=== PATIENT | female | born 1990 | race Caucasian/White ===

== ENCOUNTER 2018-08-01 17:39 | Observation (INO) | payer OTHER ==
[~2018-08-01 17:39] MED LIST: IV FLUID CONTINUATION 600 ML IV ONE; SODIUM CHLORIDE 0.9% 100 ML with ceFAZolin 2,000 MG IV ONE
--- NOTE | 2018-08-01 18:55 | ED ---
Female Urogenital HPI - General Chief complaint: Vaginal Bleeding Stated complaint: Abd pain Time Seen by Provider: 08/01/18 18:12 Source: patient Mode of arrival: wheelchair Limitations: no limitations - History of Present Illness Initial comments: 28-year-old female patient presents to the emergency department today as a transfer from [facility] for further evaluation of abdominal pain and positive test. Patient states that she started having lower abdominal cramping suddenly approximately 1:30 this afternoon. Since the pain is intense and she proceeded to the emergency department for further evaluation. Patient states that she did have a positive test and after the pelvic exam started to have some vaginal bleeding. Patient did have a nexplanon control implant placed about 3 years ago. Patient is . [facility] does not have ultrasound therefore she was sent here for further evaluation. Patient states she is still having pain to the lower abdomen. Denies any radiation of the pain to her back. States she is still having some spotting. She denies any fevers or chills. Denies any hematuria, dysuria, urinary frequency, urinary urgency. Patient denies any recent rash, shortness breath, chest pain, nausea, vomiting, diarrhea, constipation, numbness , tingling, dizziness, weakness, headache, visual changes, or any other complaints. - Related Data Home Medications Medication Instructions Recorded Confirmed No Known Home Medications 08/01/18 08/01/18 Allergies Allergy/AdvReac Type Severity Reaction Status Date / Time No Known Allergies Allergy Verified 08/01/18 18:39 Review of Systems ROS Statement: Those systems with pertinent positive or pertinent negative responses have been documented in the HPI. ROS Other: All systems not noted in ROS Statement are negative. Past Medical History Past Medical History: No Reported History History of Any Multi-Drug Resistant Organisms: None Reported Past Surgical History: No Surgical Hx Reported Past Psychological History: No Psychological Hx Reported Smoking Status: Current every day smoker Past Alcohol Use History: None Reported Past Drug Use History: None Reported General Exam Limitations: no limitations General appearance: alert, in no apparent distress, other (Physical well- developed, well-nourished adult female patient in no acute distress. Vital signs upon presentation are temperature 99.3F, pulse 87, respirations 16, blood pressure 114/75, pulse ox 98% on room air.) Eye exam: Present: normal appearance, PERRL, EOMI. Absent: scleral icterus, conjunctival injection, periorbital swelling ENT exam: Present: normal exam, normal oropharynx, mucous membranes moist Respiratory exam: Present: normal lung sounds bilaterally. Absent: respiratory distress, wheezes, rales, rhonchi, stridor Cardiovascular Exam: Present: regular rate, normal rhythm, normal heart sounds. Absent: systolic murmur, diastolic murmur, rubs, gallop, clicks GI/Abdominal exam: Present: soft, tenderness (Right lower quadrant tenderness), normal bowel sounds. Absent: distended, guarding, rebound, rigid Neurological exam: Present: alert, oriented X3, CN II-XII intact Psychiatric exam: Present: normal affect, normal mood Skin exam: Present: warm, dry, intact, normal color. Absent: rash Course Vital Signs 08/01/18 08/01/18 08/01/18 18:07 19:10 20:10 Temperature 99.3 F Pulse Rate 87 81 88 Respiratory 16 18 18 Rate Blood Pressure 114/75 120/80 130/77 O2 Sat by Pulse 98 98 98 Oximetry Medical Decision Making - Medical Decision Making 28-year-old female patient is transferred from [facility] for abdominal cramping and positive test with presence of adnexal non- implant to the left arm. Concern is for ectopic . Labs reviewed and are relatively unremarkable. Hemoglobin 13.6. She did not have a quantitative hCG so we did add this, as well as 6000 at this time. Patient did have ultrasound which showed evidence for ectopic in the right adnexal region with presence of hemorrhage. My attending Dr. Hawk, did discuss the case with occupational nurse OBGYN Dr. Villalobos who will take patient to OR tonight. Patient will be given pain medication and IV fluids. - Lab Data Lab Results 08/01/18 Range/Units 18:58 HCG, Quant 6337.0 mIU/mL - Radiology Data Radiology results: report reviewed, image reviewed Ultrasound of the pelvis was obtained. Report was reviewed in its entirety. Impression by Dr. Keller just complex right adnexal cyst which appears to have yolk sac and pole with cardiac activity measuring 113 bpm. Findings could be compatible with an ectopic . Moderate to large amount of fluid with echogenic material within the pelvis can be hemorrhage. Disposition Clinical Impression: Ectopic Disposition: ADMITTED IP TO THIS [facility] Condition: Serious Referrals: Catrachito Muñiz MD [Primary Care Provider] - 1-2 days Decision to Admit Reason: Admit from EC Decision Date: 08/01/18 Decision Time: 21:29
--- NOTE | 2018-08-01 20:59 | US ---
EXAMINATION TYPE: Transabdominal DATE OF EXAM: 08/01/2018 8:28 PM COMPARISON: NONE CLINICAL HISTORY: Pain. Patient just found out she was today, has Nexplanon control in arm. Pain and bleeding EXAM PERFORMED: Transvaginal (TV) and Transabdominal (TA) EXAM MEASUREMENTS: GESTATIONAL AGE / DATING Physician Established: Not yet established Dates by LMP: LMP unknown Dates by First Scan: No previous this is first scan Dates by Current Scan for: ( 6 weeks/1 days)- Probable live right adnexal ectopic EDC: 03/26/2019 MATERNAL ANATOMY Uterus: 6.2 x 3.6 x 4.2 cm Right Ovary: Not visualized Left Ovary: 2.3 x 1.9 x 2.3 cm Post CDS / Adnexa: Severe amount of free fluid with debris visualized in bilateral adnexa and cul de sac Presence of free fluid: Yes GESTATION / SURVEY CRL: 0.4 cm (6 weeks/1 days) Yolk Sac (normal less than 6mm): 2 mm Heart Rate: 113 bpm IUP: Probable viable right adnexal ectopic Date of LMP: Unknown Beta HcG (if available): 6,337 Large complex area visualized within the right adnexa measuring 6.7 x 6.8 x 5.5 cm. Within this area appears to be a gestational sac with a pole with a yolk sac measuring 0.2 cm and a heart rate o f 113BPM. Large amount of complex free fluid visualized in bilateral adnexa and cul de sac. Small cys tic areas visualized within the endometrium. pole measurement places the gestational age of 6 weeks 1 day. IMPRESSION: 1. Complex right adnexal cyst which appears to have a yolk sac and pole with cardiac activity m easures 113 bpm. Findings can be compatible with an ectopic . 2. Moderate to large amount of fluid with echogenic material within the pelvis can be hemorrhage. 3. Report was called to Dr. Abdi by Dr. Bishop by telephone 6 hours 08/01/2018.
[2018-08-01] MEDS ORDERED: MORPHINE SULFATE 4 MG/ML SYRINGE IVP STA (21:25)
[2018-08-01] MEDS ORDERED: ONDANSETRON 4 MG/2 ML VIAL IVP STA (21:25)
[2018-08-01] MEDS ORDERED: SODIUM CHLORIDE 0.9% 1,000 ML IV ONE (21:27)
--- NOTE | 2018-08-01 22:13 | P.HPOB ---
History of Present Illness H&P Date: 08/01/18 Chief Complaint: abdominal pain this is a 28-year-old 3 para 2001 woman who presents with sudden onset of severe abdominal pain. She had a positive test at [facility] and was transferred to [facility] with suspicion for ectopic . Ultrasound imaging confirms a 6.7 cm right adnexal mass with a pole and heart rate of 113 bpm. beta hCG greater than 6000. There is a large amount of complex fluid consistent with blood in the bilateral adnexa. she is complaining of severe bilateral lower abdominal pain. She is having some irregular vaginal bleeding the last several weeks. Hemoglobin at [facility] is 13.2. The patient is unsure of last menstrual period. She has a nexplanon device which she has been using for contraception however believes it is . she has a history of 2 previous normal spontaneous vaginal deliveries. Review of Systems Constitutional: Denies chills, Denies fever Cardiovascular: Denies chest pain Respiratory: Denies cough Gastrointestinal: Reports abdominal pain Genitourinary: Reports abnormal vaginal bleeding, Reports Menstruation: Reports as per HPI Neurological: Denies headaches Past Medical History Past Medical History: No Reported History History of Any Multi-Drug Resistant Organisms: None Reported Past Surgical History: No Surgical Hx Reported Past Psychological History: No Psychological Hx Reported Smoking Status: Current every day smoker Past Alcohol Use History: None Reported Past Drug Use History: None Reported Medications and Allergies Home Medications Medication Instructions Recorded Confirmed Type No Known Home Medications 08/01/18 08/01/18 History Allergies Allergy/AdvReac Type Severity Reaction Status Date / Time No Known Allergies Allergy Verified 08/01/18 18:39 Exam Vital Signs Temp Pulse Resp BP Pulse Ox 08/01/18 21:41 97 F L 87 16 128/86 99 08/01/18 20:10 88 18 130/77 98 08/01/18 19:10 81 18 120/80 98 08/01/18 18:07 99.3 F 87 16 114/75 98 Intake and Output 08/01/18 08/01/18 08/01/18 06:59 14:59 22:59 Other: Weight 90.718 kg this is an uncomfortable-appearing female. Targeted physical exam is performed. breathing is unlabored. Heart is a regular rate and rhythm.The abdomen is soft and moderately tender with guarding but no rebound. There are no surgical scars. Pelvic examination is deferred secondary to recent transvaginal ultrasound. neurologically she is grossly intact Results US - abdomen: report reviewed, image reviewed (imaging consistent with a large right ectopic with pole and heart rate) Assessment and Plan (1) Ectopic Current Visit: Yes Status: Acute Code(s): O00.90 - UNSPECIFIED ECTOPIC WITHOUT INTRAUTERINE SNOMED Code(s): 03046371 Plan: this is a 28-year-old 3 para 2002 woman with severe abdominal pain, beta hCG greater than 6000 and findings of large right ectopic measuring greater than 6 cm with pole and heart rate. Significant free fluid in the pelvis. She is currently hemodynamically stable currently. I have recommended immediate operative treatment of ectopic . Due to large size of the ectopic mass and hemoperitoneum she will undergo exploratory laparotomy with right salpingectomy possible right salpingo-oophorectomy and any indicated surgery based on intraoperative findings. I reviewed the risks of this procedure with the patient and her partner. Risks include but are not limited to bleeding, transfusion, infection, damage to bowel, bladder, ureters and/or other pelvic or abdominal structures. Patient understands these risks and consent is obtained. The operating room team and anesthesiologist have been notified and we will proceed to the operating room.
[2018-08-01] MEDS ORDERED: HYDROmorphone (PF) 1 MG/ML ONE (22:20)
[2018-08-01] MEDS ORDERED: NEOSTIGMINE 1 MG/ML 10 ML VIAL ONE (22:20)
[2018-08-01] MEDS ORDERED: KETOROLAC 30 MG/ML 1 ML VIAL ONE (22:20)
[2018-08-01] MEDS ORDERED: GLYCOPYRROLATE 0.2 MG/ML 2 ML VIAL ONE (22:20)
[2018-08-01] MEDS ORDERED: fentaNYL (PF) 50 MCG/ML 2 ML AMP ONE (22:20)
[2018-08-01] MEDS ORDERED: ROCURONIUM BROMIDE 10 MG/ML 10 ML VIAL IV ONE (22:20)
[2018-08-01] MEDS ORDERED: LIDOCAINE 1% INJ 10MG/ML (20 ML MDV) ONE (22:20)
[2018-08-01] MEDS ORDERED: SUCCINYLCHOLINE CHLORIDE 100 MG/5 ML SYR IV ONE (22:20)
[2018-08-01] MEDS ORDERED: MIDAZOLAM 2 MG/2 ML VIAL ONE (22:20)
[2018-08-01] MEDS ORDERED: PROPOFOL 10 MG/ML 20 ML VIAL IV ONE (22:20)
[2018-08-01] MEDS ORDERED: ONDANSETRON 4 MG/2 ML VIAL ONE (22:20)
[2018-08-01] MEDS ORDERED: LACTATED RINGERS 1,000 ML IV ONE ×2 (23:10)
--- NOTE | 2018-08-01 23:32 | P.OP ---
Date of Procedure: 08/01/18 Preoperative Diagnosis: Ruptured ectopic Postoperative Diagnosis: Same Procedure(s) Performed: Exploratory laparotomy with right self inject to me and evacuation of hemoperitoneum Anesthesia: [employer] Customer Service Specialist #1: Ann Villalobos Insurance Customer Service Specialist #2: Navneet Queen Estimated Blood Loss (ml): 150 IV fluids (ml): 1,000 Urine output (ml): 50 Pathology: other (Right fallopian tube and ectopic ) Condition: stable Disposition: PACU Operative Findings: Approximately 400 mL lens of hemoperitoneum and clot in the pelvis. Enlarged right fallopian tube with active bleeding from the fimbriated end consistent with ectopic . Normal right ovary, normal left fallopian tube and ovary, normal uterus. Description of Procedure: The patient was taken from the emergency room to the operating room where general anesthetic was administered without incident. She was in positioned, prepped and draped in the dorsal supine position with a Mcqueen catheter in place. She received preoperative antibiotics. A low transverse skin incision was made and carried down to the underlying fascia sharply. The fascia was incised in the midline and extended bilaterally with Do scissors. The inferior and superior aspects of the fascial incision were elevated and the underlying rectus muscles dissected off sharply. She did have diastases of the rectus muscles. The peritoneum was identified, tented up and entered sharply. The peritoneum was immediately encountered and was suctioned out. The peritoneal incision was extended inferiorly and superiorly with excellent visualization the bladder. The self-retaining ring retractor was placed. The bowel was packed out of the pelvis. The above findings were noted. The right fallopian tube and ectopic mass were grasped with a Brock clamp. Cody clamp was placed across the mesosalpinx 2. The fallopian tube was amputated and handed off as surgical specimen. 2-0 Vicryl suture was utilized to doubly suture ligate the pedicle. Additional [id number] suture 2 was placed at the cornual end of the the pedicle. Slight oozing was noted in this area after copious irrigation of the pelvis. FloSeal therefore was applied as this was right at the cornua and I did not want to put anymore suture material in the area. Hemostasis was then noted. The rest the pelvis was inspected, no further bleeding or abnormality's were appreciated. Packing was removed from the abdomen. Retractors removed from the abdomen. Peritoneum was closed in a running fashion with 2-0 Vicryl suture. Bovie electrocautery was utilized on the rectus muscles to obtain hemostasis which was then noted. Fascia was then closed with 0 Vicryl suture in halves. The subcuticular tissue was irrigated and hemostasis was noted. Subcu was reapproximated with 2-0 Vicryl suture. Skin was closed in a subcutaneous fashion with 0 Vicryl suture. All counts reported to me as correct by the operating room staff. The patient was awoken from anesthetic and transported recovery area in stable condition.
[2018-08-01] MEDS ORDERED: NALOXONE 0.4 MG/ML 1 ML VIAL IV PRN (23:38)
[2018-08-01 23:40] LABS: Basophils % (A) 0 %; Eosinophils # (A) 0.1 k/uL (0-0.7); Eosinophils % (A) 1 %; HCT 32.7 % (34.0-46.0); Lymphocytes # (A) 4.5 k/uL (1.0-4.8); Lymphocytes % (A) 39 %; MCH 30.4 pg (25.0-35.0); MCHC 33.6 g/dL (31.0-37.0); MCV 90.6 fL (80.0-100.0); Monocytes # (A) 0.7 k/uL (0-1.0); Monocytes % (A) 6 %; Neutrophils # (A) 6.2 k/uL (1.3-7.7); Neutrophils % (A) 53 %; Platelet Count 251 k/uL (150-450); RDW 13.2 % (11.5-15.5); WBC 11.7 k/uL (3.8-10.6)
[2018-08-01] MEDS: MEPERIDINE 50 MG/ML SYRINGE IVP ONE ×2 (23:46→23:50)
[2018-08-02] MEDS ORDERED: SIMETHICONE 80 MG CHEWABLE PO PRN (00:33)
[2018-08-02] MEDS ORDERED: LACTATED RINGERS 1,000 ML IV SCH (00:33)
[2018-08-02] MEDS ORDERED: IBUPROFEN 600 MG TAB PO PRN (00:33)
[2018-08-02] MEDS ORDERED: ONDANSETRON 4 MG/2 ML VIAL IVP PRN (00:33)
[2018-08-02] MEDS ORDERED: diphenhydrAMINE 50 MG/ML 1 ML VIAL IVP PRN (00:33)
[2018-08-02] MEDS ORDERED: NALOXONE 0.4 MG/ML 1 ML VIAL IV PRN (00:33)
[2018-08-02] MEDS ORDERED: METOCLOPRAMIDE 5 MG/ML 2 ML VIAL IVP PRN (00:33)
[2018-08-02] MEDS ORDERED: ACETAMINOPHEN IV (For NPO) 1,000 MG in EMPTY BAG 1 BAG IVPB ONE (00:33)
[2018-08-02 01:06] VITALS: BMI 27.4
[2018-08-02] MEDS ORDERED: ceFAZolin IN SWFI 2 GM/20 ML SYRINGE IVP ONE (02:00)
[2018-08-02] MEDS: KETOROLAC 30 MG/ML 1 ML VIAL IVP PRN ×4 (04:31→21:58)
[2018-08-02] MEDS: Acetaminophen-Codeine 300-30mg TAB PO PRN ×3 (07:11→18:45)
[2018-08-02 08:51] LABS: Basophils % (A) 0 %; Eosinophils % (A) 0 %; HCT 32.3 % (34.0-46.0); HGB 10.9 gm/dL (11.4-16.0); Lymphocytes % (A) 21 %; MCH 30.6 pg (25.0-35.0); MCHC 33.8 g/dL (31.0-37.0); MCV 90.6 fL (80.0-100.0); Mean Platelet Volume 6.7; Monocytes # (A) 0.6 k/uL (0-1.0); Monocytes % (A) 6 %; Neutrophils # (A) 7.2 k/uL (1.3-7.7); Neutrophils % (A) 72 %; Platelet Count 246 k/uL (150-450); RBC 3.57 m/uL (3.80-5.40); RDW 13.3 % (11.5-15.5)
[2018-08-02] MEDS: SENNOSIDES-DOCUSATE SODIUM 1 EACH TAB PO SCH ×2 (09:23→20:53)
--- NOTE | 2018-08-02 09:59 | P.PN ---
Subjective Progress Note Date: 08/02/18 Principal diagnosis: Ectopic She is complaining of pain this morning. Has been able to on ambulate without difficulty. No spontaneous void yet with catheter out. Objective - Vital Signs Vital signs: Vital Signs Temp 98.1 F 08/02/18 07:50 Pulse 72 08/02/18 07:50 Resp 12 08/02/18 07:50 BP 126/82 08/02/18 07:50 Pulse Ox 97 08/02/18 07:50 Intake & Output 08/01/18 08/02/18 08/02/18 18:59 06:59 18:59 Intake Total 700 400 Output Total 450 Balance 700 -50 Weight 90.718 kg Intake: IV 700 400 Output: Urine 300 Estimated Blood Loss 150 Other: Voiding Method Indwelling Catheter Toilet - Constitutional General appearance: Present: disheveled, no acute distress - Gastrointestinal Gastrointestinal Comment(s): Incision dressed, dry. General gastrointestinal: Present: normal bowel sounds, soft, tenderness. Absent: distended Localized gastrointestinal: tender: diffuse - Labs CBC & Chem 7: 08/02/18 08:31 Labs: Abnormal Lab Results - Last 24 Hours (Table) 08/01/18 08/02/18 Range/Units 23:27 08:31 WBC 11.7 H (3.8-10.6) k/uL RBC 3.60 L 3.57 L (3.80-5.40) m/uL Hgb 11.0 L 10.9 L (11.4-16.0) gm/dL Hct 32.7 L 32.3 L (34.0-46.0) % Assessment and Plan (1) Ectopic Narrative/Plan: Status post exploratory laparotomy with right salpingectomy. Large hemoperitoneum was noted. Operative findings were reviewed with the patient and her partner. Advance diet slowly. Current Visit: Yes Status: Acute Code(s): O00.90 - UNSPECIFIED ECTOPIC WITHOUT INTRAUTERINE SNOMED Code(s): 26554490
[2018-08-02] MEDS: LACTATED RINGERS 1,000 ML IV SCH (11:52)
[2018-08-02] MEDS ORDERED: ACETAMINOPHEN TAB 325 MG TAB PO PRN (23:35)
[2018-08-03] MEDS: Acetaminophen-Codeine 300-30mg TAB PO PRN ×2 (01:20→08:28)
[2018-08-03] MEDS: LACTATED RINGERS 1,000 ML IV SCH (06:18)
--- NOTE | 2018-08-03 07:36 | P.DS ---
Providers Date of admission: 08/01/18 22:14 Expected date of discharge: 08/03/18 Attending physician: Ann Villalobos Primary care physician: Catrachito Muñiz - Discharge Diagnosis(es) (1) Ectopic Current Visit: Yes Status: Acute Hospital Course: This is a 28-year-old 3 para 2 woman who presented with large right ectopic and hemoperitoneum from an outlying facility. HCG was greater than 6000. She went to the operating room where she underwent an exploratory laparotomy with right salpingectomy and evacuation of hemoperitoneum. Her EBL was approximately 150 mL is with 400 mL's of hemoperitoneum. Her postoperative course was unremarkable. By postoperative day #1 she was ambulating and voiding spontaneously without difficulty. Her pain was well controlled and her diet was advanced slowly to a general diet. Her postoperative hemoglobin was 11.5 down from preop of 13. She is therefore discharged home with routine instructions for postoperative care and follow-up. Of note her blood type is O+. She will return to the office for postoperative follow-up and discussion of contraceptive options as she has an nexplanon Procedures: Exploratory laparotomy with right salpingectomy and evacuation of hemoperitoneum Patient Condition at Discharge: Good Plan - Discharge Summary Discharge Rx Participant: Yes New Discharge Prescriptions: New Acetaminophen-Codeine 300-30mg [Tylenol w/codeine #3] 2 each PO Q6HR PRN #20 tab PRN Reason: Severe Pain Discharge Medication List Acetaminophen-Codeine 300-30mg [Tylenol w/codeine #3] 2 each PO Q6HR PRN #20 tab 08/03/18 [Rx] Follow up Appointment(s)/Referral(s): Ann Villalobos MD [STAFF PHYSICIAN] - 2 Weeks Activity/Diet/Wound Care/Special Instructions: Follow-up in the office 2 weeks postoperatively or sooner with any concerning signs or symptoms. Call the office with any redness or drainage from the incision, foul vaginal discharge or heavy vaginal bleeding, severe abdominal pain, redness or swelling of the lower extremities or fever greater than 100.5 . No intercourse, nothing in the vagina until seen in follow-up.
[2018-08-03] MEDS: SENNOSIDES-DOCUSATE SODIUM 1 EACH TAB PO SCH (07:41)
[2018-08-03 08:11] VITALS: BP 94/58; PULSE 84; RESP 18; TEMP 97.7
== END 2018-08-03 09:31 ==
LOC: EC 17:39 → 6PED 22:14
PROVIDERS: ADMIT Obstetrics & Gynecology; ATTEND Obstetrics & Gynecology
DX: O00.101 Right tubal pregnancy without intrauterine pregnancy (principal); F17.200 Nicotine dependence, unspecified, uncomplicated
CPT/HCPCS: 59120; 96361; 96374; 96375; 99285; 36415; 86900; 86901; 88305; 85025 ×2; 86850; 84702; 76801; 76817; G0378 ×3; C1762; J2250; J2270; J2710; J2175; J2405; J2001; J3010; J1885 ×2; J1170; J0690 ×2; J0131; J0330; J2704